=== PATIENT | male | born 1975 | race Caucasian/White ===

== ENCOUNTER 2021-12-12 15:21 | Emergency (ER) | payer SELFPAY ==
[~2021-12-12] VITALS: Ht 175.3 cm; Wt 90.9 kg
[~2021-12-12 15:21] MED LIST: NO HOME MEDICATIONS
[2021-12-12 15:44] VITALS: TEMP 98.9
[2021-12-12 16:30] LABS: BASO # 0.1 K/mm3 (0.0-0.2); BASO % 0.9 % (0.0-2.0); EOS # 0.2 K/mm3 (0.0-0.7); EOS % 2.5 % (0.0-4.0); HEMATOCRIT 46.5 % (42.0-52.0); HEMOGLOBIN 15.8 g/dl (13.5-18.0); LYMPH # 1.8 K/mm3 (1.2-3.4); LYMPH % 20.1 % (20.0-51.0); MEAN CELL VOLUME 89 fl (80.0-100.0); MEAN CORPUSCULAR HEMOGLOBIN 30 pg (27-31); MEAN CORPUSCULAR HGB CONC 34 g/dl (33.0-37.0); MEAN PLATELET VOLUME 9.4 fl (7.4-10.4); MONO % 11.1 % (1.7-9.3); PLATELET COUNT 284 K/mm3 (130-400); RED BLOOD COUNT 5.23 M/mm3 (4.20-5.60)
[2021-12-12 16:48] LABS: ALANINE AMINOTRANSFERASE 53 U/L (0-55); ALBUMIN 4.1 gm/dL (3.5-5.0); ALKALINE PHOSPHATASE 87 U/L (40-150); ANION GAP 13 mmol/L (7-16); AST,SGOT 33 U/L (5-34); BILIRUBIN,TOTAL 0.4 mg/dL (0.2-1.2); BLOOD UREA NITROGEN 10 mg/dL (9-21); CALCIUM 9.4 mg/dL (8.4-10.2); CARBON DIOXIDE 21 mmol/L (22-29); CHLORIDE 105 mmol/L (98-107); CREATININE, serum 0.85 mg/dL (0.72-1.25); GLUCOSE 114 mg/dL (70-99); LIPASE 55 U/L (8-78); SODIUM 139 mmol/L (136-145); TOTAL PROTEIN 7.9 gm/dL (6.2-8.1)
[2021-12-12 17:01] LABS: TROPONIN-I < 0.010 ng/mL (0.00-0.033)
[2021-12-12] MEDS ORDERED: CIPRODEX OT ×2 (18:32)
[2021-12-12 20:00] VITALS: BP 112/68; PULSE 73
== END 2021-12-12 20:10 | disposition home or self-care (01) ==
LOC: COL.ER 15:21
PROVIDERS: Nurse Practitioner
DX: R07.89 Other chest pain (principal)
CPT/HCPCS: J2270; J7030